=== PATIENT | female | born 2000 | race African-American/Black ===

== ENCOUNTER → 2023-05-18 | Outpatient (REF) | LOC: M EMP 09:44 | PROVIDERS: ATTEND Family Medicine | DX: Z11.52 Encounter for screening for COVID-19 (principal) ==

== ENCOUNTER → 2023-06-30 | Outpatient (REF) | LOC: M EMP 09:12 | PROVIDERS: ATTEND Family Medicine | DX: Z11.52 Encounter for screening for COVID-19 (principal) ==

== ENCOUNTER 2024-01-05 10:24 | Emergency (ER) | payer SELFPAY ==
[~2024-01-05] VITALS: Ht 157.5 cm; Wt 68.8 kg
[2024-01-05] MEDS ORDERED: VENTAER INH (10:55)
[2024-01-05] MEDS: IBUPROFEN 600MG TAB PO ONE (13:43)
[2024-01-05 14:01] VITALS: BP 121/77; TEMP 97.3; O2SAT 99
[2024-01-05] MEDS: diazePAM 5MG TABLET PO ONE (14:10)
== END 2024-01-05 15:14 | disposition home or self-care (01) ==
LOC: M ED 10:24
DX: S46.011A Strain of muscle(s) and tendon(s) of the rotator cuff of right shoulder, initial encounter (principal); Y92.9 Unspecified place or not applicable; Y93.9 Activity, unspecified; Y99.9 Unspecified external cause status; J45.909 Unspecified asthma, uncomplicated; F17.210 Nicotine dependence, cigarettes, uncomplicated; F10.10 Alcohol abuse, uncomplicated; Z88.2 Allergy status to sulfonamides; Z79.51 Long term (current) use of inhaled steroids